=== PATIENT | female | born 1980 | race Caucasian/White ===

== ENCOUNTER 2020-04-20 14:17 | Observation (INO) ==
[2020-04-20 16:30] LABS: ABG Base Excess -9 mEq/L (-2 to 3); ABG HCO3 15 mEq/L (21-27); ABG Oxygen Saturation 98 % (95-98); ABG PCO2 26 mmHg (35-45); ABG PH 7.36 pH Units (7.32-7.45); ABG PO2 100 mmHg (85-104); ABG TCO2 15 mEq/L (20-26)
[2020-04-20] MEDS ORDERED: D5% in 0.45% NACL 1,000 ML IVC PRN (16:57)
[2020-04-20] MEDS ORDERED: *HR* Dextrose 50 % in Water (Vial) 50 ML VIAL IVP PRN (16:57)
[2020-04-20] MEDS ORDERED: 0.45 % Sodium Chloride w/KCl 20 MEQ/1,000 ML MLS IVC SCH (17:00)
[2020-04-20] MEDS ORDERED: Insulin Human Regular 100 UNIT in 0.9 % Sodium Chloride 100 ML IVC SCH (17:00)
[2020-04-20 17:03] LABS: Adenovirus Not Detected (Not Detect); Bordetella Pertussis Not Detected (Not Detect); Chlamydophila pneumoniae Not Detected (Not Detect); Coronavirus 229E Not Detected (Not Detect); Coronavirus HKU1 Not Detected (Not Detect); Coronavirus NL63 Not Detected (Not Detect); Coronavirus OC43 Not Detected (Not Detect); Human Metapneumovirus Not Detected (Not Detect); Human Rhinovirus/Enterovirus DETECTED (Not Detect); Influenza A Subtype 2009 H1 Not Detected (Not Detect); Influenza B Not Detected (Not Detect); Mycoplasma pneumoniae Not Detected (Not Detect); Parainfluenza Virus 1 Not Detected (Not Detect); Parainfluenza Virus 2 Not Detected (Not Detect); Parainfluenza Virus 3 Not Detected (Not Detect); Parainfluenza Virus 4 Not Detected (Not Detect); Respiratory Syncytial Virus Not Detected (Not Detect)
[2020-04-20] MEDS: D5% in 0.45% NACL w KCl 20 MEQ/1,000 ML MLS IVC PRN ×2 (18:17→22:32)
[2020-04-20 19:06] LABS: BUN/Creatinine Ratio 26 (6-26); Blood Urea Nitrogen 19 mg/dL (6-20); Calcium 8.2 mg/dL (8.6-10.3); Carbon Dioxide 20 mEq/L (23-29); Chloride 104 mEq/L (98-107); Glucose 124 mg/dL (70-105); Osmolality,Calculated 284 (280-300); Potassium 3.2 mEq/L (3.5-5.1); Sodium 135 mEq/L (136-145); eGFR For African Americans > 60 (> 60); eGFR For Non-African Americans > 60 (> 60)
[2020-04-20] MEDS ORDERED: Naloxone 0.4 MG/ML INJ IVP PRN (19:42)
[2020-04-20 19:44] LABS: Magnesium 1.8 mg/dL (1.6-2.6); Phosphorous 2.7 mg/dL (2.7-4.5)
[2020-04-20] MEDS: Ondansetron 4 MG/2 ML VIAL IVP PRN (20:37)
[2020-04-20 21:32] LABS: VBG HCO3 21 mEq/L (21-27); VBG PCO2 42 mmHg (41-51); VBG PH 7.31 pH Units (7.32-7.42); VBG PO2 78 mmHg (25-50)
[2020-04-20 21:46] LABS: BUN/Creatinine Ratio 29 (6-26); Blood Urea Nitrogen 20 mg/dL (6-20); Calcium 8.2 mg/dL (8.6-10.3); Carbon Dioxide 20 mEq/L (23-29); Chloride 105 mEq/L (98-107); Glucose 127 mg/dL (70-105); Osmolality,Calculated 282 (280-300); Potassium 3.3 mEq/L (3.5-5.1); Sodium 134 mEq/L (136-145); eGFR For African Americans > 60 (> 60); eGFR For Non-African Americans > 60 (> 60)
[2020-04-20] MEDS: Gabapentin 400 MG CAPSULE PO SCH (21:52)
[2020-04-20] MEDS ORDERED: Acetaminophen IV 1,000 MG/100 ML INFUS..BTL IVPB ONE (22:37)
[2020-04-20] MEDS: *HR* Promethazine 25 MG/ML VIAL IVP PRN (23:36)
[2020-04-21] MEDS ORDERED: Insulin DETEMIR 100 UNIT/ML X5UNITS SQ SCH (02:30)
[2020-04-21] MEDS: D5% in 0.45% NACL w KCl 20 MEQ/1,000 ML MLS IVC PRN ×4 (02:46→10:40)
[2020-04-21] MEDS ORDERED: D5% in Water 1,000 ML IVC PRN (02:54)
[2020-04-21] MEDS ORDERED: *HR* Dextrose 50 % in Water (Vial) 50 ML VIAL IVP PRN (02:54)
[2020-04-21] MEDS ORDERED: Dextrose Gel 15 GM/37.5 ML TUBE PO PRN ×4 (02:54→14:21)
[2020-04-21] MEDS ORDERED: Insulin Human Regular 100 UNIT in 0.9 % Sodium Chloride 100 ML IVC SCH (04:15)
[2020-04-21 04:44] LABS: VBG HCO3 15 mEq/L (21-27); VBG PCO2 19 mmHg (41-51); VBG PH 7.51 pH Units (7.32-7.42); VBG PO2 218 mmHg (25-50)
[2020-04-21 04:58] LABS: Alanine Aminotransferase 8 Units/L (7-52); Albumin 3.3 g/dL (3.5-5.7); Albumin/Globulin Ratio 1.3 (1.1-2.2); Alkaline Phosphatase 54 Units/L (34-104); Aspartate Amino Transferase 12 Units/L (13-39); BUN/Creatinine Ratio 35 (6-26); Bilirubin,Total 0.5 mg/dL (0.3-1.0); Blood Urea Nitrogen 18 mg/dL (6-20); Calcium 8.2 mg/dL (8.6-10.3); Carbon Dioxide 12 mEq/L (23-29); Chloride 107 mEq/L (98-107); Globulin 2.5 g/dL (2.4-3.5); Glucose 130 mg/dL (70-105); Magnesium 1.7 mg/dL (1.6-2.6); Osmolality,Calculated 278 (280-300); Phosphorous 2.6 mg/dL (2.7-4.5); Potassium 4.4 mEq/L (3.5-5.1); Sodium 132 mEq/L (136-145); Total Protein 5.8 g/dL (6.4-8.9); eGFR For African Americans > 60 (> 60); eGFR For Non-African Americans > 60 (> 60)
[2020-04-21 05:00] LABS: Basophils # 0.1 K/mcL (0.0-0.2); Basophils % 0.5 %; Eosinophils # 0.1 K/mcL (0.0-0.6); Eosinophils % 0.7 %; Hematocrit 40.3 % (35.3-44.9); Hemoglobin 13.5 g/dL (11.5-15.4); Immature Granulocytes % 1.1 % (0-4); Lymphocytes # 3.4 K/mcL (0.6-4.6); Lymphocytes % 31.5 %; Mean Corpuscular HGB Conc 33.5 g/dL (31.6-35.5); Mean Corpuscular Hemoglobin 30.1 pg (28.0-33.3); Mean Platelet Volume 9.2 fL (9.4-12.4); Monocytes # 1.1 K/mcL (0.0-1.3); Monocytes % 10.2 %; Platelet Count 329 K/mcL (140-400); Red Blood Count 4.48 M/mcL (3.82-4.97); White Blood Count 10.7 K/mcL (4.3-11.1)
[2020-04-21] MEDS: *HR* Heparin 5,000 UNIT/ML VIAL SQ SCH ×2 (06:33→17:35)
[2020-04-21] MEDS ORDERED: Insulin LISPRO 300 UNITS/3 ML VIAL SQ SCH ×2 (07:30→21:00)
[2020-04-21] MEDS: Gabapentin 400 MG CAPSULE PO SCH ×3 (08:18→20:53)
[2020-04-21] MEDS: Cholecalciferol (D-3) 1,000 UNIT (25MCG) TABLET PO SCH (08:18)
[2020-04-21 09:35] LABS: VBG HCO3 19 mEq/L (21-27); VBG PCO2 30 mmHg (41-51); VBG PO2 163 mmHg (25-50)
[2020-04-21 09:44] LABS: BUN/Creatinine Ratio 32 (6-26); Blood Urea Nitrogen 18 mg/dL (6-20); Calcium 8.6 mg/dL (8.6-10.3); Carbon Dioxide 19 mEq/L (23-29); Chloride 106 mEq/L (98-107); Glucose 113 mg/dL (70-105); Osmolality,Calculated 279 (280-300); Potassium 3.8 mEq/L (3.5-5.1); Sodium 133 mEq/L (136-145); eGFR For African Americans > 60 (> 60); eGFR For Non-African Americans > 60 (> 60)
[2020-04-21] MEDS: Ondansetron 4 MG/2 ML VIAL IVP PRN (14:47)
[2020-04-21 16:00] LABS: BUN/Creatinine Ratio 24 (6-26); Blood Urea Nitrogen 13 mg/dL (6-20); Calcium 8.2 mg/dL (8.6-10.3); Carbon Dioxide 18 mEq/L (23-29); Chloride 106 mEq/L (98-107); Glucose 119 mg/dL (70-105); Osmolality,Calculated 279 (280-300); Potassium 3.5 mEq/L (3.5-5.1); Sodium 134 mEq/L (136-145); eGFR For African Americans > 60 (> 60); eGFR For Non-African Americans > 60 (> 60)
[2020-04-21] MEDS: *HR* Promethazine 25 MG/ML VIAL IVP PRN (17:35)
[2020-04-21] MEDS: Insulin LISPRO 300 UNITS/3 ML VIAL SQ SCH ×2 (17:51→19:17)
[2020-04-22] MEDS: *HR* Heparin 5,000 UNIT/ML VIAL SQ SCH (04:04)
[2020-04-22] MEDS: Ondansetron 4 MG/2 ML VIAL IVP PRN (04:04)
[2020-04-22 05:03] LABS: Basophils % 0.4 %; Eosinophils # 0.1 K/mcL (0.0-0.6); Eosinophils % 0.8 %; Hematocrit 39.2 % (35.3-44.9); Hemoglobin 13.3 g/dL (11.5-15.4); Immature Granulocytes % 0.6 % (0-4); Lymphocytes # 2.4 K/mcL (0.6-4.6); Lymphocytes % 33.9 %; Mean Corpuscular HGB Conc 33.9 g/dL (31.6-35.5); Mean Corpuscular Hemoglobin 30.9 pg (28.0-33.3); Mean Corpuscular Volume 91.2 fL (83.0-100.0); Mean Platelet Volume 9.2 fL (9.4-12.4); Monocytes # 0.6 K/mcL (0.0-1.3); Monocytes % 7.8 %; Platelet Count 316 K/mcL (140-400); Segmented Neutrophils % 56.5 %; White Blood Count 7.1 K/mcL (4.3-11.1)
[2020-04-22 05:15] LABS: BUN/Creatinine Ratio 17 (6-26); Blood Urea Nitrogen 9 mg/dL (6-20); Calcium 8.7 mg/dL (8.6-10.3); Carbon Dioxide 19 mEq/L (23-29); Chloride 102 mEq/L (98-107); Glucose 228 mg/dL (70-105); Osmolality,Calculated 284 (280-300); Sodium 134 mEq/L (136-145); eGFR For African Americans > 60 (> 60); eGFR For Non-African Americans > 60 (> 60)
[2020-04-22] MEDS: Gabapentin 400 MG CAPSULE PO SCH (07:56)
[2020-04-22] MEDS: Insulin LISPRO 300 UNITS/3 ML VIAL SQ SCH ×5 (07:56→14:55)
[2020-04-22] MEDS: Cholecalciferol (D-3) 1,000 UNIT (25MCG) TABLET PO SCH (07:56)
[2020-04-22] MEDS ORDERED: Metoclopramide 10 MG/2 ML VIAL IVP ONE (09:31)
[2020-04-22] MEDS ORDERED: 0.9 % Sodium Chloride 500 ML IVC ONE (09:32)
[2020-04-22 11:25] LABS: Estimated Average Glucose 364 mg/dl
[2020-04-22 11:31] VITALS: BP 113/77
[2020-04-22] MEDS ORDERED: Insulin DETEMIR 100 UNIT/ML X5UNITS SQ SCH (21:00)
== END 2020-04-22 15:40 | disposition home or self-care (01) ==
LOC: CDU → SUATTDRO 15:42 → 2NNU 17:11
PROVIDERS: ADMIT Internal Medicine; ATTEND Internal Medicine

== ENCOUNTER 2020-07-10 10:44 | Inpatient (IN) ==
[2020-07-10] MEDS ORDERED: Naloxone 0.4 MG/ML INJ IVP PRN (13:52)
[2020-07-10] MEDS ORDERED: D5% in Water 1,000 ML IVC PRN (13:55)
[2020-07-10] MEDS ORDERED: *HR* Dextrose 50 % in Water (Vial) 50 ML VIAL IVP PRN (13:55)
[2020-07-10] MEDS ORDERED: Dextrose Gel 15 GM/37.5 ML TUBE PO PRN ×2 (13:55)
[2020-07-10] MEDS ORDERED: 0.9 % Sodium Chloride 1,000 ML IVC SCH (14:00)
[2020-07-10] MEDS: Ondansetron 4 MG/2 ML VIAL IVP PRN (14:40)
[2020-07-10] MEDS ORDERED: Metoprolol XL (24 HR) Succ 50 MG TAB.ER.24H PO SCH (14:45)
[2020-07-10] MEDS: Insulin LISPRO 300 UNITS/3 ML VIAL SQ SCH ×2 (14:50→19:16)
[2020-07-10] MEDS: 0.9 % Sodium Chloride 1,000 ML IVC SCH ×2 (15:48→23:22)
[2020-07-10] MEDS: Pantoprazole 40 MG VIAL IVP SCH (17:16)
[2020-07-10] MEDS: *HR* Heparin 5,000 UNIT/ML VIAL SQ SCH (17:16)
[2020-07-10] MEDS ORDERED: Prochlorperazine 10 MG/2 ML VIAL IVP PRN (19:39)
[2020-07-10] MEDS ORDERED: *HR* Labetalol 20 MG/4 ML SYRINGE IVP ONE (19:47)
[2020-07-11] MEDS: Ondansetron 4 MG/2 ML VIAL IVP PRN ×4 (00:44→20:53)
[2020-07-11] MEDS: Insulin LISPRO 300 UNITS/3 ML VIAL SQ SCH ×4 (01:22→17:37)
[2020-07-11 03:14] LABS: Basophils % 0.4 %; Eosinophils # 0.1 K/mcL (0.0-0.6); Eosinophils % 0.7 %; Hematocrit 37.1 % (35.3-44.9); Hemoglobin 12.4 g/dL (11.5-15.4); Immature Granulocytes % 0.3 % (0-4); Lymphocytes # 1.8 K/mcL (0.6-4.6); Lymphocytes % 25.4 %; Mean Corpuscular HGB Conc 33.4 g/dL (31.6-35.5); Mean Corpuscular Hemoglobin 30.2 pg (28.0-33.3); Mean Corpuscular Volume 90.3 fL (83.0-100.0); Mean Platelet Volume 9.4 fL (9.4-12.4); Monocytes # 0.6 K/mcL (0.0-1.3); Monocytes % 7.9 %; Neutrophils # 4.6 K/mcL (1.6-8.9); Platelet Count 314 K/mcL (140-400); Red Blood Count 4.11 M/mcL (3.82-4.97); Red Cell Distribution Width 11.5 % (11.5-14.5); Segmented Neutrophils % 65.3 %; White Blood Count 7.1 K/mcL (4.3-11.1)
[2020-07-11 03:35] LABS: Alanine Aminotransferase 7 Units/L (7-52); Albumin 3.9 g/dL (3.5-5.7); Albumin/Globulin Ratio 1.6 (1.1-2.2); Alkaline Phosphatase 33 Units/L (34-104); Aspartate Amino Transferase 8 Units/L (13-39); BUN/Creatinine Ratio 38 (6-26); Bilirubin,Total 0.8 mg/dL (0.3-1.0); Blood Urea Nitrogen 21 mg/dL (6-20); Calcium 8.7 mg/dL (8.6-10.3); Carbon Dioxide 20 mEq/L (23-29); Chloride 103 mEq/L (98-107); Globulin 2.5 g/dL (2.4-3.5); Glucose 202 mg/dL (70-105); Magnesium 1.5 mg/dL (1.6-2.6); Osmolality,Calculated 289 (280-300); Phosphorous 3.5 mg/dL (2.7-4.5); Potassium 3.7 mEq/L (3.5-5.1); Sodium 135 mEq/L (136-145); Total Protein 6.4 g/dL (6.4-8.9); eGFR For African Americans > 60 (> 60); eGFR For Non-African Americans > 60 (> 60)
[2020-07-11] MEDS: *HR* Heparin 5,000 UNIT/ML VIAL SQ SCH ×2 (05:04→17:44)
[2020-07-11] MEDS: Pantoprazole 40 MG VIAL IVP SCH ×2 (05:04→17:44)
[2020-07-11 07:30] LABS: Estimated Average Glucose 163 mg/dl
[2020-07-11] MEDS: cefTRIAXone 1,000 MG in Water for inj. (sterile) 10 ML IVP SCH (08:25)
[2020-07-11] MEDS: Metoprolol XL (24 HR) Succ 50 MG TAB.ER.24H PO SCH (08:25)
[2020-07-12] MEDS: Ondansetron 4 MG/2 ML VIAL IVP PRN ×2 (03:03→09:48)
[2020-07-12] MEDS: *HR* Heparin 5,000 UNIT/ML VIAL SQ SCH ×2 (05:25→17:09)
[2020-07-12] MEDS: Pantoprazole 40 MG VIAL IVP SCH ×2 (05:26→17:10)
[2020-07-12] MEDS: Metoprolol XL (24 HR) Succ 50 MG TAB.ER.24H PO SCH (08:33)
[2020-07-12] MEDS: cefTRIAXone 1,000 MG in Water for inj. (sterile) 10 ML IVP SCH (08:34)
[2020-07-12] MEDS: Insulin LISPRO 300 UNITS/3 ML VIAL SQ SCH ×3 (08:37→17:13)
[2020-07-12 09:39] LABS: BUN/Creatinine Ratio 34 (6-26); Blood Urea Nitrogen 19 mg/dL (6-20); Calcium 8.7 mg/dL (8.6-10.3); Carbon Dioxide 23 mEq/L (23-29); Chloride 99 mEq/L (98-107); Glucose 196 mg/dL (70-105); Lipase 20 Units/L (11-82); Osmolality,Calculated 286 (280-300); Potassium 3.4 mEq/L (3.5-5.1); Sodium 134 mEq/L (136-145); eGFR For African Americans > 60 (> 60); eGFR For Non-African Americans > 60 (> 60)
[2020-07-12] MEDS ORDERED: Ringers Solution, Lactated 1,000 ML IVC SCH (16:00)
[2020-07-12] MEDS ORDERED: *HR* Metoprolol 5 MG/5 ML VIAL IVP ONE (21:54)
[2020-07-13] MEDS ORDERED: NIFEdipine 10 MG CAPSULE PO ONE (00:34)
[2020-07-13 01:18] LABS: Basophils % 0.5 %; Eosinophils # 0.1 K/mcL (0.0-0.6); Hematocrit 37.5 % (35.3-44.9); Hemoglobin 12.6 g/dL (11.5-15.4); Immature Granulocytes % 0.2 % (0-4); Lymphocytes # 2.3 K/mcL (0.6-4.6); Lymphocytes % 39.9 %; Mean Corpuscular HGB Conc 33.6 g/dL (31.6-35.5); Mean Corpuscular Hemoglobin 29.2 pg (28.0-33.3); Mean Corpuscular Volume 86.8 fL (83.0-100.0); Monocytes # 0.5 K/mcL (0.0-1.3); Monocytes % 8.2 %; Neutrophils # 2.9 K/mcL (1.6-8.9); Platelet Count 295 K/mcL (140-400); Red Blood Count 4.32 M/mcL (3.82-4.97); Red Cell Distribution Width 11.3 % (11.5-14.5); Segmented Neutrophils % 50.2 %; White Blood Count 5.7 K/mcL (4.3-11.1)
[2020-07-13 01:38] LABS: BUN/Creatinine Ratio 36 (6-26); Blood Urea Nitrogen 17 mg/dL (6-20); Calcium 8.6 mg/dL (8.6-10.3); Carbon Dioxide 20 mEq/L (23-29); Chloride 99 mEq/L (98-107); Glucose 188 mg/dL (70-105); Osmolality,Calculated 281 (280-300); Potassium 3.8 mEq/L (3.5-5.1); Sodium 132 mEq/L (136-145); eGFR For African Americans > 60 (> 60); eGFR For Non-African Americans > 60 (> 60)
[2020-07-13] MEDS ORDERED: Acetaminophen IV 1,000 MG/100 ML INFUS..BTL IVPB ONE (01:39)
[2020-07-13] MEDS ORDERED: *HR* Metoprolol 5 MG/5 ML VIAL IVP ONE (02:14)
[2020-07-13] MEDS: Ondansetron 4 MG/2 ML VIAL IVP PRN ×2 (04:44→15:59)
[2020-07-13] MEDS: Pantoprazole 40 MG VIAL IVP SCH (05:28)
[2020-07-13] MEDS: *HR* Heparin 5,000 UNIT/ML VIAL SQ SCH ×2 (05:29→17:09)
[2020-07-13 08:43] LABS: Magnesium 1.4 mg/dL (1.6-2.6)
[2020-07-13] MEDS: Metoprolol XL (24 HR) Succ 50 MG TAB.ER.24H PO SCH (09:24)
[2020-07-13] MEDS: cefTRIAXone 1,000 MG in Water for inj. (sterile) 10 ML IVP SCH (09:25)
[2020-07-13] MEDS: Insulin LISPRO 300 UNITS/3 ML VIAL SQ SCH ×3 (09:26→18:06)
[2020-07-13] MEDS ORDERED: Metoclopramide 10 MG/2 ML VIAL IVP ONE ×2 (09:45→19:55)
[2020-07-13] MEDS ORDERED: Lidocaine -MPF 2% 2 ML VIAL ONE (14:10)
[2020-07-13] MEDS ORDERED: *HR* Propofol 200 MG/20 ML VIAL IVP ONE (14:10)
[2020-07-13] MEDS ORDERED: Simethicone 40 MG/0.6 ML MLS IR ONE (14:28)
[2020-07-13] MEDS ORDERED: amLODIPine 5 MG TABLET PO SCH (16:45)
[2020-07-13] MEDS: *HR* Labetalol 20 MG/4 ML SYRINGE IVP PRN (17:23)
[2020-07-14] MEDS ORDERED: Metoclopramide 10 MG/2 ML VIAL IVP ONE (02:00)
[2020-07-14] MEDS ORDERED: *HR* Metoprolol 5 MG/5 ML VIAL IVP ONE (02:07)
[2020-07-14 04:34] LABS: BUN/Creatinine Ratio 33 (6-26); Blood Urea Nitrogen 15 mg/dL (6-20); Calcium 8.4 mg/dL (8.6-10.3); Carbon Dioxide 17 mEq/L (23-29); Chloride 100 mEq/L (98-107); Glucose 202 mg/dL (70-105); Osmolality,Calculated 281 (280-300); Potassium 3.7 mEq/L (3.5-5.1); Sodium 132 mEq/L (136-145); eGFR For African Americans > 60 (> 60); eGFR For Non-African Americans > 60 (> 60)
[2020-07-14] MEDS: *HR* Heparin 5,000 UNIT/ML VIAL SQ SCH ×2 (05:38→18:31)
[2020-07-14] MEDS ORDERED: Perflutren Lipid Microsphere 1.3 ML in 0.9 % Sodium Chloride 8.7 ML IVP PRN (08:40)
[2020-07-14] MEDS: Insulin LISPRO 300 UNITS/3 ML VIAL SQ SCH ×4 (08:51→22:54)
[2020-07-14] MEDS: Metoprolol XL (24 HR) Succ 50 MG TAB.ER.24H PO SCH (09:03)
[2020-07-14] MEDS: cefTRIAXone 1,000 MG in Water for inj. (sterile) 10 ML IVP SCH (09:04)
[2020-07-14] MEDS: *HR* Labetalol 20 MG/4 ML SYRINGE IVP PRN (23:38)
[2020-07-15] MEDS: *HR* Heparin 5,000 UNIT/ML VIAL SQ SCH (04:56)
[2020-07-15] MEDS: Metoprolol XL (24 HR) Succ 50 MG TAB.ER.24H PO SCH (08:48)
[2020-07-15] MEDS: Insulin LISPRO 300 UNITS/3 ML VIAL SQ SCH ×2 (08:50→11:46)
[2020-07-15] MEDS: cefTRIAXone 1,000 MG in Water for inj. (sterile) 10 ML IVP SCH (08:50)
[2020-07-15 14:31] VITALS: BP 162/70
== END 2020-07-15 15:28 | disposition home or self-care (01) | DRG 48 ==
LOC: 3ANU → SUATTDRO 12:51
PROVIDERS: ADMIT Internal Medicine; ATTEND Student in an Organized Health Care Education/Training Program
PROC: ENDOEBX (2020-07-13 18:50)